=== PATIENT | female | born 1980 | race Caucasian/White ===

== ENCOUNTER 2017-03-07 06:14 | Emergency (ER) | payer BC ==
[2017-03-07] MEDS ORDERED: Ketorolac 60 MG/2 ML SDV IM ONE (06:32)
[2017-03-07] MEDS ORDERED: Sodium Chloride 0.9% 10 ML Syringe FLUSH PRN (08:03)
[2017-03-07] MEDS ORDERED: Iopamidol 755 Mg/ML 100 ML Bottle IV SCH (09:15)
[2017-03-07 11:03] VITALS: BP 149/85
--- NOTE | 2017-03-08 02:20 | ER ---
DATE SEEN: 03/07/2017 HISTORY OF PRESENT ILLNESS: The patient is a 36-year-old female who comes in to emergency department with complaints of right upper quadrant pain. She has had pain like this in the past, but it has been many years, 7 years ago was her last kind of episode like this and then she had another 1 another 7 years prior. She has had workup for her gallbladder including HIDA scan, which were essentially negative for any gallbladder stone or disease, but the pain has always been in the right upper quadrant. This one started about an hour prior to presentation while she was at work here and has been localized to this area without radiation. She did not have any nausea, diarrhea, fevers, or chills. The night previous she had eaten corn and things that her usual to her diet. She has not had anything new to eat, no fried foods, no spicy foods. No history of abdominal surgeries, yesterday has been feeling her normal usual self. MEDICATIONS: None. ALLERGIES: Penicillin. PAST MEDICAL HISTORY: Questionable asthma. SOCIAL HISTORY: She does not smoke. Drinks socially on occasion. REVIEW OF SYSTEMS: CONSTITUTIONAL: As above. RESPIRATORY: No shortness of breath. PHYSICAL EXAMINATION: VITAL SIGNS: Temperature is 36.7, pulse is 81, blood pressure 155/95, respiratory rate 17, 100% on room air. GENERAL: She is in no apparent acute distress. LUNGS: Clear to auscultation bilaterally. HEART: Regular rhythm. No rubs, gallops, murmurs. ABDOMEN: Soft, nontender in the left upper quadrant. In the right upper quadrant, she has mild tenderness to palpation. No guarding. No rebound. Positive bowel sounds. EXTREMITIES: Without cyanosis, clubbing, or edema. LABORATORY DATA: Urinalysis within normal limits. CBC within normal limits. Metabolic panel within normal limits. Her AST is 16, her total bilirubin is 0.5, ALT 17, alkaline phosphatase is 70. Abdominal CT was essentially negative. ASSESSMENT: Right upper quadrant pain. PLAN: She was given Toradol 60 mg initially in the emergency department which seemed to drop her pain from a 9 to a 2. She remained vitally stable and pain was minimal. Repeat abdominal exam was essentially benign. It is unclear if this represents gallbladder disease with normal CT, ultrasound may be better to evaluate this, but she is stable and pain is under control. Encouraged to follow up with her primary physician this week. /[id number] LORRAINE
== END 2017-03-07 11:04 | disposition home or self-care (01) ==
LOC: FB.ED 06:14
DX: R10.11 Right upper quadrant pain (principal); Z88.0 Allergy status to penicillin
CPT/HCPCS: 36415; 74177; 80053; 81001; 82150; 85025; 96372; 99284; J1885; J7050; Q9967

== ENCOUNTER 2017-11-11 07:44 | Day surgery (SDC) | payer BC ==
[2017-11-11] MEDS ORDERED: Lactated Ringers 1,000 ML IV SCH (07:45)
[2017-11-11] MEDS ORDERED: Sodium Chloride 0.9% 10 ML Syringe FLUSH PRN (07:45)
[2017-11-11] MEDS ORDERED: Lidocaine 2% 100 MG/5 ML Syringe IVPUSH ONE (09:30)
[2017-11-11] MEDS ORDERED: Propofol 200 MG/20 ML SDV IV ONE (09:30)
[2017-11-11] MEDS ORDERED: Midazolam 1 MG/ML 2 ML SDV IV ONE (09:30)
--- NOTE | 2017-11-11 09:50 | PCM.OPNOTE ---
- General Post-Op/Procedure Note Date of Surgery/Procedure: 11/11/17 Operative Procedure(s): egd with bx Findings: gastritis Pre Op Diagnosis: ruq abd pain Post-Op Diagnosis: gastritis Anesthesia Technique: MAC Primary Surgeon: José Mo Anesthesia Provider: Lilia Hughes Pathology: stomach. Complications: None Condition: Good Free Text/Narrative:: see dictation
[2017-11-11 11:22] VITALS: BP 150/88
--- NOTE | 2017-11-11 14:30 | OR ---
DATE OF OPERATION: 11/11/2017 SURGEON: José Mo MD PROCEDURE PERFORMED: EGD with cold forceps biopsy. PREOPERATIVE DIAGNOSIS: Right upper quadrant abdominal pain. POSTOPERATIVE DIAGNOSIS: Gastritis. INDICATIONS FOR PROCEDURE: This is a 37-year-old white female who is referred with the above-mentioned history of right upper quadrant abdominal pain. Ultrasounds have been negative in the past. Apparently, she has had several HIDA scans which have been nondiagnostic for biliary dyskinesia in the past. Therefore, she was offered and accepted an EGD as part of the workup to determine etiology for her pain. DESCRIPTION OF PROCEDURE: After an excellent IV sedation was administered, the bite block was inserted. The flexible endoscope was passed without difficulty down to the patient's esophagus into the stomach. The stomach was insufflated. Scope was passed through the pylorus to the second portion of duodenum and slowly withdrawn. The following findings were noted. Duodenum was unremarkable. Stomach, in the antrum especially there was some gastritis. Biopsies were taken. Esophagus was unremarkable. GE junction measured approximately 40 cm. The stomach was deflated. Scope was removed. Patient tolerated procedure well, and was taken to recovery room in good condition. /[id number] /MODL
== END 2017-11-11 11:07 | disposition home or self-care (01) ==
LOC: FB.SDS 07:44
PROVIDERS: ATTEND Surgery
DX: K29.50 Unspecified chronic gastritis without bleeding (principal); E66.01 Morbid (severe) obesity due to excess calories; Z88.0 Allergy status to penicillin; Z91.040 Latex allergy status; Z79.899 Other long term (current) drug therapy; Z68.41 Body mass index [BMI] 40.0-44.9, adult; Z87.891 Personal history of nicotine dependence
CPT/HCPCS: 43239; 81025; 88305; 88342; J2250; J2704; J7120

== ENCOUNTER 2018-02-18 23:25 | Emergency (ER) | payer BC ==
[2018-02-18] MEDS ORDERED: Ondansetron 8 MG Tab.DIS PO ONE (23:52)
[2018-02-18] MEDS ORDERED: Ketorolac 60 MG/2 ML SDV IM ONE (23:52)
[2018-02-18] MEDS ORDERED: Alum Hydroxide/Mag Hydroxide 15 ML, Lidocaine 2% 15 ML PO ONE ×2 (23:52)
--- NOTE | 2018-02-18 23:54 | EDM.PDOC ---
ED HPI GENERAL MEDICAL PROBLEM - General Chief Complaint: Abdominal Pain Stated Complaint: ABD PAIN Time Seen by Provider: 02/18/18 23:43 Source of Information: Reports: Patient History Limitations: Reports: No Limitations - History of Present Illness INITIAL COMMENTS - FREE TEXT/NARRATIVE: 37 y.o.w.f with a h/o Duodenitis, last Upper GI done in October 2017, came to the ed due to acute onset of Mid upper and Right upper abd. pain after taking her Carafate meds for her duodenitis. Pain is excruciating, no trauma. In the past, only Toradol helped her pain. Pt had multiple abd. U/S and HIDA Scans in the past, all were neg. Pt felt nauseated, did not vomit. No other acute medical issues. BP 154/55 pulse 110 temp 37.3 RR 16 Pulse ox 100% Onset Date: 02/18/18 Onset Time: 23:00 Duration: Hour(s): Location: Reports: Abdomen Quality: Reports: Ache, Burning, Dull, Pressure, Same as Previous Episode Severity: Moderate Improves with: Reports: Rest Worsens with: Reports: Movement Context: Reports: Other (severe epigastric and RUQ abd. pain after eating Karafate ) Bilateral Upper Abdomen Pain Score (Numeric/FACES): 6 - Related Data Allergies Allergy/AdvReac Type Severity Reaction Status Date / Time latex Allergy Severe Swelling Verified 02/18/18 23:37 Penicillins Allergy Severe Swelling Verified 02/18/18 23:37 Home Meds: Home Meds Albuterol [Proair HFA] 2 inh INH Q4HR PRN 03/07/17 [History] Ibuprofen [Motrin] 200 mg PO Q8H PRN 11/10/17 [History] Levonorgestrel [Mirena] 1 each IY ASDIRECTED 11/10/17 [History] Omeprazole Magnesium [Prilosec Otc] 20 mg PO DAILY #30 tablet. 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 (See Below) Other OB/BYN History: ABNORMAL PAP Musculoskeletal History: Reports: Fracture Neurological History: Reports: None Psychiatric History: Reports: Depression Endocrine/Metabolic History: Reports: Obesity/BMI 30+ Hematologic History: Reports: None Immunologic History: Reports: None Oncologic (Cancer) History: Reports: None Dermatologic History: Reports: Eczema - Past Surgical History Head Surgeries/Procedures: Reports: None HEENT Surgical History: Reports: Oral Surgery, Tonsillectomy Cardiovascular Surgical History: Reports: None Respiratory Surgical History: Reports: None GI Surgical History: Reports: None Female Surgical History: Reports: Section, Other (See Below) Other Female Surgeries/Procedures: MIRENA IUD Endocrine Surgical History: Reports: None Neurological Surgical History: Reports: None Musculoskeletal Surgical History: Reports: None Oncologic Surgical History: Reports: None Dermatological Surgical History: Reports: None Social & Family History - Family History Family Medical History: Noncontributory - Tobacco Use Smoking Status *Q: Never Smoker - Caffeine Use Caffeine Use: Reports: None - Recreational Drug Use Recreational Drug Use: No ED ROS GENERAL - Review of Systems Review Of Systems: See Below Constitutional: Reports: No Symptoms HEENT: Reports: No Symptoms Respiratory: Reports: No Symptoms Cardiovascular: Reports: No Symptoms Endocrine: Reports: No Symptoms GI/Abdominal: Reports: Abdominal Pain (Mid upper abd. and RUQ of abdomen.) : Reports: No Symptoms Musculoskeletal: Reports: No Symptoms Skin: Reports: No Symptoms Neurological: Reports: No Symptoms Psychiatric: Reports: No Symptoms Hematologic/Lymphatic: Reports: No Symptoms Immunologic: Reports: No Symptoms ED EXAM, GI/ABD - Physical Exam Exam: See Below Exam Limited By: No Limitations General Appearance: Alert, WD/WN, Moderate Distress Eyes: Bilateral: Normal Appearance Ears: Normal External Exam, Normal Canal Nose: Normal Inspection, Normal Mucosa, No Blood Throat/Mouth: Normal Inspection, Normal Lips, Normal Voice, No Airway Compromise Head: Atraumatic, Normocephalic Neck: Normal Inspection, Supple, Non-Tender, Full Range of Motion Respiratory/Chest: No Respiratory Distress, Lungs Clear, Normal Breath Sounds, No Accessory Muscle Use, Chest Non-Tender Cardiovascular: Normal Peripheral Pulses, Regular Rate, Rhythm, No Edema, No Gallop, No JVD, No Murmur, No Rub GI/Abdominal Exam: Normal Bowel Sounds, No Abnormal Bruit, Tender (RUQ of abdomen), Hepatomegaly (Female) Exam: Deferred Rectal (Female) Exam: Deferred Back Exam: Normal Inspection, Full Range of Motion Extremities: Normal Inspection, Normal Range of Motion, Non-Tender, No Pedal Edema, Normal Capillary Refill Neurological: Alert, Oriented, CN II-XII Intact, Normal Cognition, Normal Gait, Normal Reflexes, No Motor/Sensory Deficits Psychiatric: Normal Affect, Normal Mood Skin Exam: Warm, Dry, Normal Color, No Rash Lymphatic: No Adenopathy Course - Vital Signs Text/Narrative:: 37 y.o.w.f with a h/o Duodenitis, last Upper GI done in October 2017, came to the ed due to acute onset of Mid upper and Right upper abd. pain after taking her Carafate meds for her duodenitis. Pain is excruciating, no trauma. In the past, only Toradol helped her pain. Pt had multiple abd. U/S and HIDA Scans in the past, all were neg. Pt felt nauseated, did not vomit. No other acute medical issues. BP 154/55 pulse 110 temp 37.3 RR 16 Pulse ox 100% PE: Acute onset of RUQ abd. pain Impression: H/O Duodenitis, RUQ abd. pain Tx: Zofran, GI cocktail, Toradol Reexam: Improved 99% Plan: D/C with instructions Last Recorded V/S: Last Vital Signs Temp 37.8 C 02/19/18 00:30 Pulse 101 H 02/19/18 00:30 Resp 16 02/19/18 00:30 BP 151/90 H 02/19/18 00:30 Pulse Ox 100 02/19/18 00:30 - Orders/Labs/Meds Meds: Medications Discontinued Medications Generic Name Dose Route Start Last Admin Trade Name Freq PRN Reason Stop Dose Admin Al Hydroxide/Mg Hydroxide 15 0 ml 02/18/18 23:52 02/18/18 23:58 ml/ Lidocaine HCl 15 ml PO 02/18/18 23:53 30 ml ONETIME ONE Administration Ketorolac Tromethamine 60 mg 02/18/18 23:52 02/18/18 23:59 Toradol IM 02/18/18 23:53 60 mg ONETIME ONE Administration Ondansetron HCl 8 mg 02/18/18 23:52 02/18/18 23:58 Zofran Odt PO 02/18/18 23:53 8 mg ONETIME ONE Administration Departure - Departure Time of Disposition: 00:19 Disposition: Home, Self-Care 01 Condition: Good Clinical Impression: Pain, abdominal, RUQ - Discharge Information Prescriptions: Ondansetron [Zofran ODT] 4 mg PO Q6H PRN #20 tab.dis PRN Reason: Nausea vomiting Referrals: José Mo MD [Primary Care Provider] - Forms: ED Department Discharge Additional Instructions: Please avoid spicy food, please take Zofran for nausea, Maalox for pain, Please f/u with your PMD/GI specialist for further care, please come back if your symptoms get worse.
[2018-02-19] MEDS ORDERED: Ondansetron 4 MG Tab.DIS PO ONE (00:22)
[2018-02-19 00:43] VITALS: BP 151/90
== END 2018-02-19 00:40 | disposition home or self-care (01) ==
LOC: FB.ED 23:25
DX: R10.11 Right upper quadrant pain (principal); Z91.040 Latex allergy status; Z88.0 Allergy status to penicillin; Z79.899 Other long term (current) drug therapy; Z87.19 Personal history of other diseases of the digestive system
CPT/HCPCS: 99283; A9270-GY; J1885

== ENCOUNTER 2020-07-18 06:40 | Emergency (ER) | payer BC, OTHER ==
[2020-07-18] MEDS ORDERED: Aspirin 81 MG Tab.Chew PO ONE (06:47)
[2020-07-18] MEDS ORDERED: Alum Hydroxide/Mag Hydroxide 15 ML, Lidocaine 2% 15 ML PO ONE ×2 (06:47)
--- NOTE | 2020-07-18 07:01 | EDM.PDOC ---
ED HPI GENERAL MEDICAL PROBLEM - General Chief Complaint: Chest Pain Stated Complaint: SOB Time Seen by Provider: 07/18/20 06:45 Source of Information: Reports: Patient History Limitations: Reports: No Limitations - History of Present Illness INITIAL COMMENTS - FREE TEXT/NARRATIVE: has been having episodes of irregular heart beat all night , this am turned into a pressure in her anterior chest with radiation to the back states she usually gets bad heartburn but this did not feel like heart burn this night had irregular HR on and off till this am when it became more of a ch est pain ans she decided to come in to be seen mild sob noted no fever or chills no cough Onset: Gradual Onset Date: 07/08/20 Duration: Hour(s):, Getting Worse Location: Reports: Chest Quality: Reports: Ache, Pressure Severity: Moderate Improves with: Reports: None Worsens with: Reports: Breathing Context: Reports: Other (HAS HAD CHEST DISCOMFORT ON AND OFF NOT RELATED TO ACTIVITY) L anterior chest Pain Score (Numeric/FACES): 5 - Related Data Allergies Allergy/AdvReac Type Severity Reaction Status Date / Time latex Allergy Severe Swelling Verified 02/18/18 23:37 Penicillins Allergy Severe Swelling Verified 02/18/18 23:37 Home Meds: Home Meds Montelukast [Singulair] 10 mg PO DAILY 07/18/20 [History] Past Medical History HEENT History: Reports: Impaired Vision Cardiovascular History: Reports: None Respiratory History: Reports: Bronchitis, Recurrent, Other (See Below) Gastrointestinal History: Reports: Irritable Bowel Syndrome Genitourinary History: Reports: None 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), 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 Musculoskeletal History: Reports: Fracture Neurological History: Reports: None Psychiatric History: Reports: Depression Endocrine/Metabolic History: Reports: Obesity/BMI 30+ Hematologic History: Reports: None Immunologic History: Reports: None Oncologic (Cancer) History: Reports: None Dermatologic History: Reports: Eczema - Past Surgical History Head Surgeries/Procedures: Reports: None HEENT Surgical History: Reports: Oral Surgery, Tonsillectomy Cardiovascular Surgical History: Reports: None Respiratory Surgical History: Reports: None GI Surgical History: Reports: None Female Surgical History: Reports: Section, Other (See Below) Other Female Surgeries/Procedures: MIRENA IUD Endocrine Surgical History: Reports: None Neurological Surgical History: Reports: None Musculoskeletal Surgical History: Reports: None Oncologic Surgical History: Reports: None Dermatological Surgical History: Reports: None Social & Family History - Family History Family Medical History: Noncontributory - Caffeine Use Caffeine Use: Reports: None ED ROS GENERAL - Review of Systems Review Of Systems: Comprehensive ROS is negative, except as noted in HPI. ED EXAM, GENERAL - Physical Exam Exam: See Below Exam Limited By: No Limitations General Appearance: Alert, WD/WN, No Apparent Distress Eye Exam: Bilateral Eye: EOMI Ears: Normal External Exam Ear Exam: Bilateral Ear: TM Dull Nose: Normal Inspection Throat/Mouth: Normal Inspection Head: Atraumatic, Normocephalic Neck: Supple, Non-Tender Respiratory/Chest: No Respiratory Distress, Lungs Clear, Normal Breath Sounds. No: Crackles, Wheezing Cardiovascular: Normal Peripheral Pulses, Regular Rate, Rhythm, Tachycardia. No: No Murmur GI/Abdominal: Normal Bowel Sounds, Soft, Non-Tender, No Abnormal Bruit Back Exam: No: CVA Tenderness (R), CVA Tenderness (L) Extremities: Normal Range of Motion, Non-Tender. No: Pedal Edema Neurological: Alert, Oriented, CN II-XII Intact Psychiatric: Anxious Skin Exam: Warm, Dry Course - Vital Signs Last Recorded V/S: Last Vital Signs Temp Pulse 69 07/18/20 09:15 Resp 18 07/18/20 09:15 BP 167/97 H 07/18/20 09:15 Pulse Ox 100 07/18/20 09:15 - Orders/Labs/Meds Orders: Active Orders 24 hr Category Date Time Status EKG 12 Lead [EK] Routine Ther 07/18/20 06:46 Ordered EKG 12 Lead [EK] Routine Ther 07/18/20 08:15 Ordered Labs: Laboratory Tests 07/18/20 07/18/20 07/18/20 Range/Units 07:35 07:35 07:35 WBC 7.9 (4.5-12.0) X10-3/uL RBC 4.05 (3.23-5.20) x10(6)uL Hgb 13.0 (11.5-15.5) g/dL Hct 38.3 (30.0-51.3) % MCV 94.8 (80-96) fL MCH 32.1 (27.7-33.6) pg MCHC 33.9 (32.2-35.4) g/dL RDW 11.6 (11.5-15.5) % Plt Count 249 (125-369) X10(3)uL Sodium 137 (135-145) mmol/L Potassium 3.9 (3.5-5.3) mmol/L Chloride 101 (100-110) mmol/L Carbon Dioxide 26 (21-32) mmol/L BUN 16 (7-18) mg/dL Creatinine 0.9 (0.55-1.02) mg/dL Est Cr Clr Drug Dosing TNP Estimated GFR (MDRD) > 60 (>60) BUN/Creatinine Ratio 17.8 (9-20) Glucose 122 H (80-116) mg/dL Calcium 9.3 (8.6-10.2) mg/dL Magnesium (1.8-2.5) mg/dL Troponin I 5.3 (4.0-60.3) pg/mL 07/18/20 Range/Units 07:35 WBC (4.5-12.0) X10-3/uL RBC (3.23-5.20) x10(6)uL Hgb (11.5-15.5) g/dL Hct (30.0-51.3) % MCV (80-96) fL MCH (27.7-33.6) pg MCHC (32.2-35.4) g/dL RDW (11.5-15.5) % Plt Count (125-369) X10(3)uL Sodium (135-145) mmol/L Potassium (3.5-5.3) mmol/L Chloride (100-110) mmol/L Carbon Dioxide (21-32) mmol/L BUN (7-18) mg/dL Creatinine (0.55-1.02) mg/dL Est Cr Clr Drug Dosing Estimated GFR (MDRD) (>60) BUN/Creatinine Ratio (9-20) Glucose (80-116) mg/dL Calcium (8.6-10.2) mg/dL Magnesium 1.9 (1.8-2.5) mg/dL Troponin I (4.0-60.3) pg/mL Meds: Medications Discontinued Medications Generic Name Dose Route Start Last Admin Trade Name Freq PRN Reason Stop Dose Admin Aspirin 324 mg 07/18/20 06:47 07/18/20 06:54 Aspirin PO 07/18/20 06:48 324 mg ONETIME ONE Administration Chlorthalidone 50 mg 07/18/20 08:33 07/18/20 08:53 Chlorthalidone PO 07/18/20 08:34 50 mg ONETIME ONE Administration Al Hydroxide/Mg Hydroxide 15 0 ml 07/18/20 06:47 07/18/20 06:53 ml/ Lidocaine HCl 15 ml PO 07/18/20 06:48 30 ml ONETIME ONE Administration Pantoprazole Sodium 80 mg 07/18/20 07:43 07/18/20 08:54 Protonix Iv IVPUSH 07/18/20 07:44 Not Given .BOLUS ONE Pantoprazole Sodium 40 mg 07/19/20 08:37 Protonix PO 0600 GAL Pantoprazole Sodium 40 mg 07/18/20 08:54 07/18/20 08:53 Protonix PO 40 mg 0600 GAL Administration - Re-Assessments/Exams Free Text/Narrative Re-Assessment/Exam: 07/18/20 15:50 pt was given GI cocktail and pain in chest improved was given Aspirin and protonix BP remained elevated despite monitoring throughout visit pt did indicate she had been prescribed diuretic and was not taking pt encouraged to do so as BP remained elevated chlorthalidone was given to pt chest pain did resolve 07/18/20 15:52 Departure - Departure Time of Disposition: 09:25 Disposition: Home, Self-Care 01 Condition: Fair Clinical Impression: Atypical chest pain, GERD (gastroesophageal reflux disease), Hypertension Instructions: Nonspecific Chest Pain, Adult, [id number], Hypertension, Adult, [id number], Pantoprazole tablets, Gastroesophageal Reflux Disease, Adult, [id number], Chlorthalidone tablets Referrals: Yoon Freitas NP [Primary Care Provider] - Forms: ED Department Discharge Additional Instructions: 1) RESTART ANTIHYPERTENSIVE MEDICATION PRESCRIBED BY YOUR PCP 2) LOW SALT INTAKE 3) WEIGHT LOSS ENCOURAGED 4) MAKE APPOINTMENT TO SEE YOUR PCP , YOU 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 5) CALL WITH ANY CONCERNS Sepsis Event Note (ED) - Focused Exam Vital Signs: Vital Signs Pulse Resp BP Pulse Ox 07/18/20 09:15 69 18 167/97 H 100 07/18/20 09:00 74 20 166/95 H 100 07/18/20 08:30 73 18 164/94 H 100 07/18/20 08:00 80 21 H 161/74 H 100 07/18/20 07:30 82 20 179/93 H 100 07/18/20 07:15 86 20 164/67 H 07/18/20 07:00 84 20 139/94 H 100 07/18/20 06:45 85 20 162/90 H 100 - My Orders Last 24 Hours: My Active Orders 07/18/20 06:46 EKG 12 Lead [EK] Routine 07/18/20 08:15 EKG 12 Lead [EK] Routine - Assessment/Plan Last 24 Hours: My Active Orders 07/18/20 06:46 EKG 12 Lead [EK] Routine 07/18/20 08:15 EKG 12 Lead [EK] Routine
[2020-07-18] MEDS ORDERED: Pantoprazole 40 MG Vial IVPUSH ONE (07:43)
[2020-07-18] MEDS ORDERED: Chlorthalidone 25 MG Tab PO ONE (08:33)
[2020-07-18] MEDS ORDERED: Pantoprazole 40 MG Tab.CR PO SCH (08:54)
[2020-07-18 11:41] VITALS: BP 167/97; PULSE 69
[2020-07-19] MEDS ORDERED: Pantoprazole 40 MG Tab.CR PO SCH (08:37)
== END 2020-07-18 09:25 | disposition home or self-care (01) ==
LOC: FB.ED 06:40
DX: K21.9 Gastro-esophageal reflux disease without esophagitis (principal); I10 Essential (primary) hypertension; E66.9 Obesity, unspecified; Z91.040 Latex allergy status; Z88.0 Allergy status to penicillin; Z79.899 Other long term (current) drug therapy
CPT/HCPCS: 36415; 80048; 83735; 84484; 85027; 93005; 99285; A9270; 99284

== ENCOUNTER 2022-10-07 18:54 | Emergency (ER) | payer BC ==
[2022-10-07] MEDS ORDERED: Ondansetron 4 MG Tab.DIS PO ONE (18:55)
[2022-10-07] MEDS ORDERED: Labetalol 20 MG/4 ML Syringe IVPUSH ONE ×2 (19:10→20:13)
[2022-10-07] MEDS ORDERED: Sodium Chloride 0.9% 10 ML Syringe FLUSH PRN (19:10)
[2022-10-07] MEDS ORDERED: Ondansetron 4 MG/2 ML SDV IVPUSH ONE (19:11)
[2022-10-07 19:36] LABS: ESTIMATED GFR 95 mL/min (>60)
[2022-10-07] MEDS ORDERED: Enalaprilat 1.25 MG/ML SDV IVPUSH ONE (20:12)
[2022-10-07 21:17] VITALS: BP 163/85; PULSE 71
== END 2022-10-07 21:25 | disposition home or self-care (01) ==
LOC: FB.ED 18:54
DX: I10 Essential (primary) hypertension (principal); E66.9 Obesity, unspecified; Z68.43 Body mass index [BMI] 50.0-59.9, adult; Z91.040 Latex allergy status; Z88.0 Allergy status to penicillin; Z79.899 Other long term (current) drug therapy
CPT/HCPCS: 36415; 80053; 83735; 84484; 85025; 96374; 96375; 99283-25; J2405; J3490; Q0162

== ENCOUNTER 2022-10-09 15:50 | Emergency (ER) | payer BC ==
[2022-10-09] MEDS ORDERED: Ondansetron 4 MG/2 ML SDV IVPUSH ONE (16:04)
[2022-10-09] MEDS ORDERED: Sodium Chloride 0.9% 10 ML Syringe FLUSH PRN (16:11)
[2022-10-09] MEDS ORDERED: Sodium Chloride 0.9% 1,000 ML IV SCH ×2 (16:15→18:00)
[2022-10-09] MEDS ORDERED: Promethazine 25 MG/ML SDV IM STA (16:26)
[2022-10-09 16:31] VITALS: BP 203/97; PULSE 60
[2022-10-09 16:35] LABS: ESTIMATED GFR 82 mL/min (>60)
[2022-10-09] MEDS ORDERED: Pantoprazole 40 MG Vial IVPUSH STA (17:30)
[2022-10-09] MEDS ORDERED: Prochlorperazine 10 MG/2 ML SDV IVPUSH ONE (17:30)
[2022-10-09] MEDS ORDERED: Codeine/guaiFENesin 10-100 MG/5 ML Syrup 5 ML Cup PO STA (17:35)
[2022-10-09] MEDS ORDERED: Calcium Gluconate 10% 1 GM/10 ML SDV IVPUSH ONE (17:48)
[2022-10-09] MEDS ORDERED: Sodium Bicarbonate 8.4% 50 MEQ/50 ML Syringe IVPUSH ONE (17:48)
[2022-10-09] MEDS ORDERED: Iopamidol 755 Mg/ML 100 ML Bottle IV ONE (17:59)
== END 2022-10-09 19:13 | disposition home or self-care (01) ==
LOC: FB.ED 15:50
DX: K21.9 Gastro-esophageal reflux disease without esophagitis (principal); K29.70 Gastritis, unspecified, without bleeding; E66.9 Obesity, unspecified; Z68.42 Body mass index [BMI] 45.0-49.9, adult; Z91.040 Latex allergy status; Z88.0 Allergy status to penicillin; Z79.899 Other long term (current) drug therapy
CPT/HCPCS: 36415; 74177; 80053; 81001; 81025; 82150; 83690; 85025; 96372; 96374; 96375; 99284; A9270; C9113; J0780; J2405; J2550; Q9967

== ENCOUNTER 2022-10-14 11:58 | Emergency (ER) | payer BC ==
[2022-10-14] MEDS ORDERED: Sodium Chloride 0.9% 10 ML Syringe FLUSH PRN (12:12)
[2022-10-14] MEDS ORDERED: Promethazine 25 MG/ML SDV IM ONE (12:13)
[2022-10-14] MEDS ORDERED: Prochlorperazine 10 MG/2 ML SDV IVPUSH ONE (12:13)
[2022-10-14] MEDS ORDERED: Sodium Chloride 0.9% 1,000 ML IV SCH (12:15)
[2022-10-14] MEDS ORDERED: Pantoprazole 40 MG Vial IVPUSH STA (12:17)
[2022-10-14 12:35] LABS: ESTIMATED GFR 73 mL/min (>60)
[2022-10-14] MEDS ORDERED: Ondansetron 4 MG/2 ML SDV IVPUSH ONE (13:32)
[2022-10-14] MEDS ORDERED: LORazepam 2 MG/ML SDV IVPUSH STA (13:32)
[2022-10-14 14:26] VITALS: PULSE 88
[2022-10-14 14:30] VITALS: BP 178/91
[2022-10-14] MEDS ORDERED: hydrOXYzine HCl 50 MG/ML SDV IM ONE (14:35)
[2022-10-14] MEDS ORDERED: LORazepam 1 MG Tab PO ONE (15:25)
== END 2022-10-14 16:07 | disposition home or self-care (01) ==
LOC: FB.ED 11:58
DX: K21.9 Gastro-esophageal reflux disease without esophagitis (principal); E66.9 Obesity, unspecified; Z68.42 Body mass index [BMI] 45.0-49.9, adult; Z91.040 Latex allergy status; Z88.0 Allergy status to penicillin; Z79.899 Other long term (current) drug therapy
CPT/HCPCS: 74019; 80053; 81001; 82150; 83690; 85025; 96361; 96372; 96374; 96375; 99284; 99284-25; C9113; J0780; J2060; J2405; J2550; J3410; J3490; J7030

== ENCOUNTER 2022-12-04 07:10 | Emergency (ER) | payer BC ==
[2022-12-04] MEDS ORDERED: Sodium Chloride 0.9% 10 ML Syringe FLUSH PRN (07:39)
[2022-12-04] MEDS ORDERED: Pantoprazole 40 MG Vial IVPUSH ONE (07:40)
[2022-12-04] MEDS ORDERED: Sodium Chloride 0.9% 1,000 ML IV SCH (07:45)
[2022-12-04] MEDS ORDERED: Iopamidol 755 Mg/ML 100 ML Bottle IV ONE (07:56)
[2022-12-04 08:27] LABS: ESTIMATED GFR 82 mL/min (>60)
[2022-12-04 10:37] VITALS: BP 138/55; PULSE 63
== END 2022-12-04 10:58 | disposition home or self-care (01) ==
LOC: FB.ED 07:10
DX: K21.9 Gastro-esophageal reflux disease without esophagitis (principal); E66.9 Obesity, unspecified; Z91.040 Latex allergy status; Z88.0 Allergy status to penicillin; Z79.899 Other long term (current) drug therapy; Z98.84 Bariatric surgery status
CPT/HCPCS: 36415; 74177; 80053; 81001; 82150; 83690; 85025; 96361; 96374; 99283; 99284-25; C9113; J7030; Q9967

== ENCOUNTER 2024-05-29 13:43 | Emergency (ER) | payer BC ==
[2024-05-29] MEDS ORDERED: Sodium Chloride 0.9% 10 ML Syringe FLUSH PRN (14:13)
[2024-05-29 14:33] LABS: BASOPHILS PERCENT AUTO 0.7 % (0.2-1.5); EOSINOPHILS ABSOLUTE AUTO 0.2 x10-3/uL (0.0-0.8); EOSINOPHILS PERCENT AUTO 3.1 % (0.6-8.1); HEMOGLOBIN 12.7 g/dL (11.4-15.5); LYMPHOCYTES ABSOLUTE AUTO 1.4 x10-3/uL (1.0-4.4); LYMPHOCYTES PERCENT AUTO 26.4 % (18.4-52.1); MEAN CORPUSCULAR HEMOGLOBIN 31.8 pg (23.9-33.9); MEAN CORPUSCULAR HGB CONC 34.2 g/dL (31.9-34.8); MEAN PLATELET VOLUME 8.4 fL (7.1-12.4); MONOCYTES ABSOLUTE AUTO 0.3 x10-3/uL (0.3-1.0); MONOCYTES PERCENT AUTO 5.9 % (4.4-15.7); NEUTROPHILS ABSOLUTE AUTO 3.5 x10-3/uL (1.5-6.3); NEUTROPHILS PERCENT AUTO 63.9 % (30.8-76.2); PLATELET COUNT,PLT 215 x10(3)uL (151-488); RED BLOOD CELL COUNT 3.98 x10(6)uL (3.60-5.20); RED CELL DISTRIBUTION WIDTH 12.7 % (12.3-16.5); WHITE BLOOD CELL COUNT,WBC 5.5 x10-3/uL (3.0-10.3)
[2024-05-29 14:39] VITALS: BP 189/108; PULSE 72
[2024-05-29 14:40] LABS: BLOOD UREA NITROGEN,BUN 11 mg/dL (7-18); BUN/CREATININE RATIO 12.2 (9-20); CALCIUM 9.1 mg/dL (8.6-10.2); CARBON DIOXIDE,CO2 24 mmol/L (21-32); CHLORIDE,CL 106 mmol/L (100-110); CREATININE 0.9 mg/dL (0.55-1.02); ESTIMATED GFR 81 mL/min (>60); GLUCOSE RANDOM 131 mg/dL (80-116); SODIUM,NA 142 mmol/L (135-145)
[2024-05-29 14:46] LABS: A/G RATIO 1.1; ALANINE AMINOTRANSFERASE,ALT 22 U/L (12-36); ALBUMIN 3.8 g/dL (3.5-5.2); ALKALINE PHOSPHATASE 96 IU/L (56-112); ASPARTATE AMNIOTRANSFERASE,AST 17 IU/L (5-25); BILIRUBIN TOTAL 0.6 mg/dL (0.1-1.3); PROTEIN TOTAL,TP 7.3 g/dL (6.0-8.0)
[2024-05-29] MEDS: Sodium Chloride 0.9% 1,000 ML IV SCH (15:21)
[2024-05-29] MEDS: Ondansetron 4 MG/2 ML SDV IVPUSH ONE (15:25)
[2024-05-29] MEDS: Pantoprazole 40 MG Vial IVPUSH ONE (15:52)
[2024-05-29] MEDS: Ketorolac 30 MG/ML SDV IVPUSH ONE (15:52)
[2024-05-29] MEDS: Iopamidol 755 Mg/ML 100 ML Bottle IV ONE (16:14)
[2024-05-29] MEDS: hydrOXYzine HCl 50 MG/ML SDV IM ONE (17:27)
[2024-05-29] MEDS: Prochlorperazine 10 MG/2 ML SDV IVPUSH ONE (17:27)
[2024-05-29] MEDS: LORazepam 2 MG/ML SDV IVPUSH ONE (18:42)
== END 2024-05-29 20:25 | disposition home or self-care (01) ==
LOC: FB.ED 13:43
DX: Z98.84 Bariatric surgery status (principal); E66.9 Obesity, unspecified; Z88.0 Allergy status to penicillin; Z91.040 Latex allergy status; Z88.8 Allergy status to other drugs, medicaments and biological substances; Z79.890 Hormone replacement therapy; Z79.899 Other long term (current) drug therapy
CPT/HCPCS: 36415; 74177; 80053; 85025; 96361; 96372; 96374; 96375; 99284; J0780; J1885; J2060; J2405; J2470; J3410; J7030; Q9967

== ENCOUNTER 2025-05-09 13:44 | Emergency (ER) | payer BC ==
[2025-05-09] MEDS ORDERED: Sodium Chloride 0.9% 10 ML Syringe FLUSH PRN (14:33)
[2025-05-09] MEDS: Prochlorperazine 10 MG/2 ML SDV IVPUSH ONE (14:53)
[2025-05-09 15:04] LABS: BASOPHILS ABSOLUTE AUTO 0.0 x10-3/uL (0.0-0.1); EOSINOPHILS ABSOLUTE AUTO 0.1 x10-3/uL (0.0-0.8); MEAN PLATELET VOLUME 8.4 fL (7.1-12.4); MONOCYTES ABSOLUTE AUTO 0.5 x10-3/uL (0.3-1.0); MONOCYTES PERCENT AUTO 7.1 % (4.4-15.7); RED BLOOD CELL COUNT 4.29 x10(6)uL (3.60-5.20); WHITE BLOOD CELL COUNT,WBC 7.5 x10-3/uL (3.0-10.3)
[2025-05-09 15:06] LABS: BASOPHILS PERCENT AUTO 0.4 % (0.2-1.5); EOSINOPHILS PERCENT AUTO 0.9 % (0.6-8.1); LYMPHOCYTES ABSOLUTE AUTO 1.1 x10-3/uL (1.0-4.4); LYMPHOCYTES PERCENT AUTO 14.9 % (18.4-52.1); NEUTROPHILS ABSOLUTE AUTO 5.7 x10-3/uL (1.5-6.3); NEUTROPHILS PERCENT AUTO 76.7 % (30.8-76.2); PLATELET COUNT,PLT 225 x10(3)uL (151-488); RED CELL DISTRIBUTION WIDTH 11.8 % (12.3-16.5)
[2025-05-09 15:07] LABS: BLOOD UREA NITROGEN,BUN 15 mg/dL (7-18); CARBON DIOXIDE,CO2 25 mmol/L (21-32); CHLORIDE,CL 104 mmol/L (100-110); CREATININE 1.0 mg/dL (0.55-1.02); EST CRCL DRUG DOSING (CG) 61.99 mL/min; ESTIMATED GFR 71 mL/min (>60); GLUCOSE RANDOM 82 mg/dL (80-116); POTASSIUM,K 3.7 mmol/L (3.5-5.3); SODIUM,NA 142 mmol/L (135-145)
[2025-05-09 15:18] LABS: A/G RATIO 1.2; ALANINE AMINOTRANSFERASE,ALT 33 U/L (12-36); ASPARTATE AMNIOTRANSFERASE,AST 23 IU/L (5-25); BILIRUBIN TOTAL 1.0 mg/dL (0.1-1.3); PROTEIN TOTAL,TP 7.5 g/dL (6.0-8.0)
[2025-05-09 16:27] VITALS: BP 138/74; PULSE 73
== END 2025-05-09 16:09 | disposition home or self-care (01) ==
LOC: FB.ED 13:44
DX: R55 Syncope and collapse (principal); F41.0 Panic disorder [episodic paroxysmal anxiety]; F41.1 Generalized anxiety disorder; K21.9 Gastro-esophageal reflux disease without esophagitis; I10 Essential (primary) hypertension; E66.9 Obesity, unspecified; E03.9 Hypothyroidism, unspecified; Z88.0 Allergy status to penicillin; Z91.040 Latex allergy status; Z88.8 Allergy status to other drugs, medicaments and biological substances; Z79.890 Hormone replacement therapy; Z79.899 Other long term (current) drug therapy; Z86.16 Personal history of COVID-19; Z87.891 Personal history of nicotine dependence; Z68.42 Body mass index [BMI] 45.0-49.9, adult; Z88.2 Allergy status to sulfonamides
CPT/HCPCS: 80053; 83690; 85025; 93005; 93010; 96361; 96374; 96375; 99283; 99284; 99284-25; A9270-GY; J0780; J3360; J7070; Q0162

== ENCOUNTER 2025-05-12 10:51 | Emergency (ER) | payer BC ==
[2025-05-12] MEDS: Sodium Chloride 0.9% 10 ML Syringe FLUSH PRN (11:43)
[2025-05-12 11:44] LABS: BASOPHILS ABSOLUTE AUTO 0.0 x10-3/uL (0.0-0.1); BASOPHILS PERCENT AUTO 0.3 % (0.2-1.5); EOSINOPHILS ABSOLUTE AUTO 0.0 x10-3/uL (0.0-0.8); EOSINOPHILS PERCENT AUTO 0.0 % (0.6-8.1); LYMPHOCYTES ABSOLUTE AUTO 0.7 x10-3/uL (1.0-4.4); LYMPHOCYTES PERCENT AUTO 10.6 % (18.4-52.1); MEAN PLATELET VOLUME 8.0 fL (7.1-12.4); MONOCYTES ABSOLUTE AUTO 0.4 x10-3/uL (0.3-1.0); MONOCYTES PERCENT AUTO 6.0 % (4.4-15.7); NEUTROPHILS ABSOLUTE AUTO 5.2 x10-3/uL (1.5-6.3); NEUTROPHILS PERCENT AUTO 83.1 % (30.8-76.2); PLATELET COUNT,PLT 221 x10(3)uL (151-488); RED BLOOD CELL COUNT 4.33 x10(6)uL (3.60-5.20); RED CELL DISTRIBUTION WIDTH 12.3 % (12.3-16.5); WHITE BLOOD CELL COUNT,WBC 6.2 x10-3/uL (3.0-10.3)
[2025-05-12] MEDS: Ondansetron 4 MG/2 ML SDV IVPUSH ONE (11:44)
[2025-05-12] MEDS: LORazepam 2 MG/ML SDV IVPUSH ONE (11:45)
[2025-05-12] MEDS: Ketorolac 30 MG/ML SDV IVPUSH ONE (11:45)
[2025-05-12 11:49] LABS: BLOOD UREA NITROGEN,BUN 14 mg/dL (7-18); CARBON DIOXIDE,CO2 25 mmol/L (21-32); CHLORIDE,CL 100 mmol/L (100-110); CREATININE 1.2 mg/dL (0.55-1.02); EST CRCL DRUG DOSING (CG) 51.66 mL/min; ESTIMATED GFR 57 mL/min (>60); GLUCOSE RANDOM 135 mg/dL (80-116); POTASSIUM,K 3.5 mmol/L (3.5-5.3); SODIUM,NA 139 mmol/L (135-145)
[2025-05-12 12:00] LABS: A/G RATIO 1.4; ALANINE AMINOTRANSFERASE,ALT 32 U/L (12-36); ASPARTATE AMNIOTRANSFERASE,AST 21 IU/L (5-25); BILIRUBIN TOTAL 1.0 mg/dL (0.1-1.3); LACTIC ACID 0.9 mmol/L (0.4-2.0); PROTEIN TOTAL,TP 8.0 g/dL (6.0-8.0)
[2025-05-12] MEDS: Iopamidol 755 Mg/ML 100 ML Bottle IV SCH (12:05)
[2025-05-12] MEDS: Prochlorperazine 10 MG/2 ML SDV IVPUSH ONE (13:05)
[2025-05-12 14:26] VITALS: BP 132/60
[2025-05-12 14:27] VITALS: PULSE 70
== END 2025-05-12 14:29 | disposition home or self-care (01) ==
LOC: FB.ED 10:51
DX: R11.2 Nausea with vomiting, unspecified (principal); F41.1 Generalized anxiety disorder; R10.13 Epigastric pain; I10 Essential (primary) hypertension; K21.9 Gastro-esophageal reflux disease without esophagitis; E03.9 Hypothyroidism, unspecified; Z86.16 Personal history of COVID-19; Z91.040 Latex allergy status; Z88.0 Allergy status to penicillin; Z88.8 Allergy status to other drugs, medicaments and biological substances; Z79.890 Hormone replacement therapy; Z79.899 Other long term (current) drug therapy
CPT/HCPCS: 36415; 74177; 80053; 83605; 83690; 83735; 85025; 86140; 96361; 96374; 96375; 99284; J0780; J1885; J2060; J2405; J2470; J7030; Q9967

== ENCOUNTER 2025-05-12 15:53 | Emergency (ER) | payer BC ==
[2025-05-12] MEDS: LORazepam 2 MG/ML SDV IVPUSH ONE (17:19)
[2025-05-12] MEDS: Ondansetron 4 MG/2 ML SDV IVPUSH ONE (17:19)
[2025-05-12] MEDS: Ketorolac 30 MG/ML SDV IVPUSH ONE (18:54)
[2025-05-12] MEDS ORDERED: LORazepam 2 MG/ML SDV IVPUSH ONE (19:26)
[2025-05-12 19:49] VITALS: BP 175/82; PULSE 98
[2025-05-12] MEDS: HYDROmorphone 2 MG/ML SDV IVPUSH ONE (20:09)
== END 2025-05-12 20:30 ==
LOC: FB.ED 15:53
DX: R10.13 Epigastric pain (principal); R11.2 Nausea with vomiting, unspecified; I10 Essential (primary) hypertension; K21.9 Gastro-esophageal reflux disease without esophagitis; E03.9 Hypothyroidism, unspecified; Z86.16 Personal history of COVID-19; Z87.891 Personal history of nicotine dependence; Z91.040 Latex allergy status; Z88.0 Allergy status to penicillin; Z88.8 Allergy status to other drugs, medicaments and biological substances; Z79.890 Hormone replacement therapy; Z79.899 Other long term (current) drug therapy
CPT/HCPCS: 36410; 96361; 96365; 96375; 99284; 99285; J0780; J1171; J1885; J2060; J2405; J7030; 36415; 74177; 80053; 83605; 83690; 83735; 85025; 86140; 96374; J2470; Q9967

== ENCOUNTER 2025-05-25 15:33 | Emergency (ER) | payer BC ==
[2025-05-25] MEDS ORDERED: Sodium Chloride 0.9% 10 ML Syringe FLUSH PRN (15:48)
[2025-05-25] MEDS: LORazepam 2 MG/ML SDV IVPUSH ONE (16:00)
[2025-05-25] MEDS: Ondansetron 4 MG/2 ML SDV IVPUSH ONE (16:00)
[2025-05-25] MEDS: Ketorolac 30 MG/ML SDV IVPUSH ONE (16:00)
[2025-05-25 16:35] LABS: BASOPHILS ABSOLUTE AUTO 0.0 x10-3/uL (0.0-0.1); BASOPHILS PERCENT AUTO 0.6 % (0.2-1.5); EOSINOPHILS ABSOLUTE AUTO 0.2 x10-3/uL (0.0-0.8); EOSINOPHILS PERCENT AUTO 2.0 % (0.6-8.1); LYMPHOCYTES ABSOLUTE AUTO 1.5 x10-3/uL (1.0-4.4); LYMPHOCYTES PERCENT AUTO 19.7 % (18.4-52.1); MEAN PLATELET VOLUME 8.5 fL (7.1-12.4); MONOCYTES ABSOLUTE AUTO 0.6 x10-3/uL (0.3-1.0); MONOCYTES PERCENT AUTO 8.5 % (4.4-15.7); NEUTROPHILS ABSOLUTE AUTO 5.2 x10-3/uL (1.5-6.3); NEUTROPHILS PERCENT AUTO 69.2 % (30.8-76.2); PLATELET COUNT,PLT 288 x10(3)uL (151-488); RED BLOOD CELL COUNT 4.49 x10(6)uL (3.60-5.20); RED CELL DISTRIBUTION WIDTH 12.5 % (12.3-16.5); WHITE BLOOD CELL COUNT,WBC 7.5 x10-3/uL (3.0-10.3)
[2025-05-25 16:39] LABS: BLOOD UREA NITROGEN,BUN 17 mg/dL (7-18); CARBON DIOXIDE,CO2 27 mmol/L (21-32); CHLORIDE,CL 103 mmol/L (100-110); CREATININE 1.3 mg/dL (0.55-1.02); ESTIMATED GFR 52 mL/min (>60); GLUCOSE RANDOM 133 mg/dL (80-116); POTASSIUM,K 3.4 mmol/L (3.5-5.3); SODIUM,NA 141 mmol/L (135-145)
[2025-05-25 16:45] LABS: A/G RATIO 1.3; ALANINE AMINOTRANSFERASE,ALT 45 U/L (12-36); ASPARTATE AMNIOTRANSFERASE,AST 21 IU/L (5-25); BILIRUBIN TOTAL 1.1 mg/dL (0.1-1.3); PROTEIN TOTAL,TP 7.8 g/dL (6.0-8.0)
[2025-05-25 16:49] LABS: LACTIC ACID 1.7 mmol/L (0.4-2.0)
[2025-05-25 21:02] VITALS: BP 161/98; PULSE 79
== END 2025-05-25 20:15 | disposition home or self-care (01) ==
LOC: FB.ED 15:33
DX: K29.00 Acute gastritis without bleeding (principal); F41.1 Generalized anxiety disorder; I10 Essential (primary) hypertension; E66.9 Obesity, unspecified; E03.9 Hypothyroidism, unspecified; K21.9 Gastro-esophageal reflux disease without esophagitis; Z98.84 Bariatric surgery status; Z79.899 Other long term (current) drug therapy; Z79.890 Hormone replacement therapy; Z86.16 Personal history of COVID-19; Z87.891 Personal history of nicotine dependence
CPT/HCPCS: 36415; 80053; 83605; 83735; 84484; 85025; 86140; 93005; 93010; 96361; 96365; 96375; 99284; 99285-25; J0780; J1885; J2060; J2405; J2470; J7030